=== PATIENT | female | born 1970 | race Caucasian/White ===

== ENCOUNTER 2018-12-09 14:43 | Emergency (ER) | payer MEDICAID, MEDICARE ==
[~2018-12-09] VITALS: Ht 162.6 cm; Wt 72.7 kg
[~2018-12-09 14:43] MED LIST: DIVA-81 PO; ZIPR40CA2 PO
[2018-12-09 17:09] LABS: CLARITY,URINE SLIGHTLY CLOUDY (Clear); COLOR,URINE YELLOW (Yellow); GLUCOSE, URINE NEGATIVE (Neg); KETONES,URINE NEGATIVE (Neg); LEUKOCYTE ESTERASE ,URINE NEGATIVE (Neg); NITRITES, URINE NEGATIVE (Neg); OCCULT BLOOD,URINE SMALL (Neg); PH,URINE 5.5 (4.8-8.0); PROTEIN,URINE NEGATIVE (Neg); UROBILINOGEN,URINE 0.2 E.U/dL (0.2-1.0)
[2018-12-09 17:10] LABS: URINE HCG NEGATIVE (NEG)
[2018-12-09 17:11] LABS: UA COLLECTION TYPE CLN CATCH MIDSTREAM
[2018-12-09 17:34] LABS: SQUAMOUS EPITHELIAL CELL,UR MANY /LPF (FEW)
[2018-12-09 17:35] LABS: BACTERIA,URINE 1+ /HPF (Neg); WBC,URINE 0-4 /HPF (0-4)
[2018-12-09 17:36] LABS: RBC,URINE 0-2 /HPF (0-2)
[2018-12-09 17:43] LABS: BASOPHILS # (AUTO) 0.1 X10'3 (0-0.2); BASOPHILS % (AUTO) 1.2 % (0-1); EOSINOPHILS # (AUTO) 0.1 X10'3 (0-0.9); HEMATOCRIT 39.3 % (35.0-45.0); HEMOGLOBIN 13.3 g/dl (12.0-16.0); LYMPHOCYTES # (AUTO) 1.9 X10'3 (1.1-4.8); LYMPHOCYTES % (AUTO) 28.8 % (21-51); MEAN CORPUSCULAR HEMOGLOBIN 32.5 PG (27.0-31.0); MEAN CORPUSCULAR HGB CONC 33.7 g/dL (33.0-36.5); MEAN CORPUSCULAR VOLUME 96.4 FL (78-98); MEAN PLATELET VOLUME 7.6 FL (7.4-10.4); MONOCYTES # (AUTO) 0.7 X10'3 (0-0.9); MONOCYTES % (AUTO) 10.5 % (2-12); NEUTROPHILS # (AUTO) 3.9 X10'3 (1.8-7.7); NEUTROPHILS % (AUTO) 57.5 % (42-75); PLATELET COUNT 277 X10'3 (140-440); RED BLOOD COUNT 4.07 X10'6 (4.20-5.60); RED CELL DISTRIBUTION WIDTH 14.4 % (11.5-14.5); WHITE BLOOD COUNT 6.7 X10'3 (4.5-11.0)
[2018-12-09 17:50] VITALS: BP 94/66
[2018-12-09 17:56] LABS: ALANINE AMINOTRANSFERASE 36 U/L (12-78); ALBUMIN 3.3 G/DL (3.4-5.0); ALKALINE PHOSPHATASE 48 IU/L (46-116); ANION GAP 8 (8-16); ASPARTATE AMINO TRANSFERASE 11 U/L (10-37); BILIRUBIN,TOTAL 0.3 MG/DL (0.1-1.0); BLOOD UREA NITROGEN 10 MG/DL (7-18); BUN/CREATININE RATIO 12.5 (6.6-38.0); CALCIUM 8.6 MG/DL (8.5-10.1); CHLORIDE 107 MMOL/L (99-107); GLUCOSE 114 MG/DL (70-104); LIPASE 86 U/L (73-393); SODIUM 142 MMOL/L (135-145); TOTAL CARBON DIOXIDE 27.3 MMOL/L (24-32); TOTAL PROTEIN 6.6 G/DL (6.4-8.2); eGFR 77 ML/MIN
[2018-12-09] MEDS ORDERED: potassium Cl 20 mEq SR tablet PO STA (18:12)
[2018-12-09] MEDS ORDERED: ONDA8TAB6 PO (18:15)
[2018-12-09] MEDS ORDERED: ondansetron 4mg rapidly disintigrating tab PO ONE (18:15)
[2018-12-09] MEDS ORDERED: POTA20TA19 PO (18:15)
[2018-12-09] MEDS ORDERED: acetaminophen 325mg tablet PO ONE (18:15)
== END 2018-12-09 18:30 | disposition home or self-care (01) ==
LOC: ER 14:43
DX: R10.30 Lower abdominal pain, unspecified (principal); I10 Essential (primary) hypertension; G89.29 Other chronic pain; F41.9 Anxiety disorder, unspecified; F20.9 Schizophrenia, unspecified; Z98.51 Tubal ligation status; Z98.890 Other specified postprocedural states; Z56.0 Unemployment, unspecified; Z88.5 Allergy status to narcotic agent; Z88.8 Allergy status to other drugs, medicaments and biological substances; Z79.899 Other long term (current) drug therapy
CPT/HCPCS: 36415; 80053; 81001; 81025; 83690; 85025; 99284

== ENCOUNTER 2020-03-04 10:42 | Emergency (ER) | payer MEDICARE ==
[~2020-03-04] VITALS: Ht 167.6 cm; Wt 70.0 kg
[~2020-03-04 10:42] MED LIST changes: +ONDA8TAB6 PO
--- NOTE | 2020-03-04 10:53 | NUR ---
didier [phone] son
[2020-03-04 11:18] LABS: BASOPHILS # (AUTO) 0.1 X10'3 (0-0.2); BASOPHILS % (AUTO) 0.9 % (0-1); EOSINOPHILS # (AUTO) 0.1 X10'3 (0-0.9); EOSINOPHILS % (AUTO) 1.5 % (0-6); HEMATOCRIT 44.4 % (35.0-45.0); HEMOGLOBIN 15.1 g/dl (12.0-16.0); LYMPHOCYTES # (AUTO) 2.3 X10'3 (1.1-4.8); LYMPHOCYTES % (AUTO) 31.6 % (21-51); MEAN CORPUSCULAR HEMOGLOBIN 32.9 PG (27.0-31.0); MEAN CORPUSCULAR HGB CONC 33.9 g/dL (33.0-36.5); MEAN CORPUSCULAR VOLUME 96.9 FL (78-98); MEAN PLATELET VOLUME 7.7 FL (7.4-10.4); MONOCYTES % (AUTO) 12.9 % (2-12); NEUTROPHILS # (AUTO) 3.9 X10'3 (1.8-7.7); NEUTROPHILS % (AUTO) 53.1 % (42-75); PLATELET COUNT 297 X10'3 (140-440); RED BLOOD COUNT 4.58 X10'6 (4.20-5.60); RED CELL DISTRIBUTION WIDTH 13.9 % (11.5-14.5); WHITE BLOOD COUNT 7.4 X10'3 (4.5-11.0)
[2020-03-04] MEDS ORDERED: LORazepam 1 MG tablet PO ONE (11:35)
[2020-03-04 11:37] LABS: ALANINE AMINOTRANSFERASE 43 U/L (12-78); ALBUMIN 3.8 G/DL (3.4-5.0); ALKALINE PHOSPHATASE 55 IU/L (46-116); ANION GAP 13 (8-16); ASPARTATE AMINO TRANSFERASE 34 U/L (10-37); BILIRUBIN,TOTAL 0.6 MG/DL (0.1-1.0); BLOOD UREA NITROGEN 9 MG/DL (7-18); BUN/CREATININE RATIO 13.4 (6.6-38.0); CHLORIDE 103 MMOL/L (99-107); CREATININE 0.67 MG/DL (0.40-0.90); GLUCOSE 92 MG/DL (70-104); POTASSIUM 3.2 MMOL/L (3.5-5.1); SODIUM 142 MMOL/L (135-145); TOTAL PROTEIN 7.6 G/DL (6.4-8.2); eGFR > 90 ML/MIN
[2020-03-04] MEDS ORDERED: potassium Cl 20 mEq SR tablet PO ONE (12:20)
--- NOTE | 2020-03-04 12:26 | NUR ---
Assumed care from REN Hilton. Pt still wearing her street clothes. Explained to patient that she has been placed on a 1799 and would need to change into green scrubs. Pt refused to change. ER Techs and security at bedside to help assist patient into green scrubs.
[2020-03-04 12:50] LABS: ETHANOL < 0.010 GM/DL (0.0-0.010)
--- NOTE | 2020-03-04 13:12 | NUR ---
Pt resting on gurney. Warm blanket given.
--- NOTE | 2020-03-04 13:13 | NUR ---
Pt refuses to give UA sample.
--- NOTE | 2020-03-04 14:31 | NUR ---
Pt sitting up and eating her lunch.
--- NOTE | 2020-03-04 15:10 | NUR ---
Patient disorganized and appears psychotic. Patient unable to figure out how to dial the phone. Patient unable to take directions on giving a urine sample. Patient was given the cup and the cup was thrown out. Tech gave patient water to drink. Continue to monitor.
[2020-03-04] MEDS: nicotine 14mg patch - 24hr TD SCH (16:55)
[2020-03-04] MEDS ORDERED: LISI40TA4 PO (17:10)
[2020-03-04] MEDS ORDERED: HCTZ25T PO (17:10)
--- NOTE | 2020-03-04 17:50 | NUR ---
Patient had another fail in giving a urine sample. Tech placed a hat and patient urinated in the hat. Specimen sent. Continue to monitor.
[2020-03-04 18:09] LABS: URINE HCG NEGATIVE (NEG)
[2020-03-04 18:10] LABS: CLARITY,URINE SLIGHTLY CLOUDY (Clear); COLOR,URINE YELLOW (Yellow); GLUCOSE, URINE NEGATIVE (Neg); KETONES,URINE TRACE mg/dl (Neg); LEUKOCYTE ESTERASE ,URINE NEGATIVE (Neg); NITRITES, URINE NEGATIVE (Neg); OCCULT BLOOD,URINE SMALL (Neg); PROTEIN,URINE NEGATIVE (Neg); UROBILINOGEN,URINE >=8.0 E.U/dL (0.2-1.0)
[2020-03-04 18:15] LABS: URINE AMPHETAMINE SCREEN NEGATIVE (Neg); URINE BARBITUATE SCREEN NEGATIVE (Neg); URINE BENZODIAZEPINES SCREEN NEGATIVE (Neg); URINE CANNABINOID SCREEN NEGATIVE (Neg); URINE COCAINE SCREEN NEGATIVE (Neg); URINE METHADONE SCREEN NEGATIVE (Neg); URINE OPIATE SCREEN NEGATIVE (Neg); URINE PHENCYCLIDINE SCREEN NEGATIVE (Neg)
[2020-03-04 18:17] LABS: UA COLLECTION TYPE CLN CATCH MIDSTREAM
[2020-03-04 18:19] LABS: BACTERIA,URINE FEW /HPF (Neg); MUCUS STRANDS MODERATE /LPF (Neg); RBC,URINE 0-2 /HPF (0-2); SQUAMOUS EPITHELIAL CELL,UR MANY /LPF (FEW); TRANSITIONAL EPI CELLS,URINE MODERATE /HPF; WBC,URINE 0-4 /HPF (0-4)
[2020-03-04 18:20] LABS: CAL OXALATE CRYSTALS 1+ /HPF (NEGATIVE)
[2020-03-04] MEDS: ziprasidone 20mg capsule PO SCH (20:38)
--- NOTE | 2020-03-04 21:04 | NUR ---
Pt has been lying in bed dozing at times alternating with ambulating on unit. Pt is agitated at times thought process very disorganized. Interviewed by [facility]. Took YOLANDA castle without problem. Pt becoming more agitated declined any PRN medications. Claims someone gave her a medication she is allergic to. Sitting on bed brushing hair at this time. Encouraged to ask staff if she changes her mind and wants anything to help her sleep.
--- NOTE | 2020-03-04 22:45 | NUR ---
Pt was able to calm self and go to sleep without further intervention. Sleeping at this time resp even and unlabored.
[2020-03-05] MEDS ORDERED: LORazepam 1 MG tablet PO ONE (01:00)
--- NOTE | 2020-03-05 01:53 | NUR ---
Pt became agitated. Desribed seeing something on the wall that was frightening her. Pt agreed to take Ativan. Order obtained Ativan given. Pt made 2 attempts to leave unit by back door. Redirected by Tech. Pt is in bed sleeping at this time.
--- NOTE | 2020-03-05 03:57 | NUR ---
Pt sleeping at this time. Had another episode of going to door as if to leave. Pt able to be redirected but became agitated yelled at staff then yelled toward floor "get up off the floor."
--- NOTE | 2020-03-05 05:45 | NUR ---
Pt made another attempt to leave floor. Redirected back to bed.
--- NOTE | 2020-03-05 06:44 | NUR ---
[facility]150 placed at 2053. Packet was sent per Vitaliy. Pat ient laying on right side. No distress observed. Continue to monitor.
--- NOTE | 2020-03-05 07:04 | NUR ---
Patient laying supine with eyes closed. No distress observed at this time.
--- NOTE | 2020-03-05 07:05 | NUR ---
Jocelynn pastor in ED - 03/05/20 at 0706 by MAGO Patient sleeping on left side. No distress observed at this time.
[2020-03-05] MEDS: ziprasidone 20mg capsule PO SCH ×2 (08:44→20:29)
[2020-03-05] MEDS: nicotine 14mg patch - 24hr TD SCH (08:45)
[2020-03-05] MEDS: lisinopril 20mg tablet PO SCH (08:45)
[2020-03-05] MEDS: HYDROchlorothiazide 25mg tablet PO SCH (08:53)
--- NOTE | 2020-03-05 09:10 | NUR ---
Patient awake and sitting up in bed. No distress observed. Continue to monitor.
--- NOTE | 2020-03-05 11:05 | NUR ---
Patient appears to be sleeping. No distress observed. Continue to monitor.
--- NOTE | 2020-03-05 13:15 | NUR ---
SPOKE TO [facility]. PRIMARY RN WILL CALL BACK WITH RN TO RN REPORT. NEGATIVE COVID NEEDED IN ORDER TO BE ACCEPTED TO [facility]. SPOKE WITH DR OGDEN, ORDER RECEIVED
--- NOTE | 2020-03-05 15:22 | NUR ---
Faxed Negative Covid test results to [facility].
--- NOTE | 2020-03-05 16:34 | NUR ---
Shakeel [phone]. Son wants to be notified when patient is transferred. Son want to move mom to [place], [place] where he lives. He wants to know when patient will be back so he can take her with him.
--- NOTE | 2020-03-05 17:45 | NUR ---
Accepted at [facility]. Will probably go tomorrow morning. Patient advised. Continue to monitor.
--- NOTE | 2020-03-05 19:00 | NUR ---
Patient is awake, mid fowlers in bed. She is cooperative and alert, some disorganized thought. The patient tells this greeting card writer that she is off her medications. Patient denies S/I, H/I, she denies hallucinations.
--- NOTE | 2020-03-06 01:35 | NUR ---
Patient up to bathroom to void. Her gait is normal. Patient returns to bed and sleep without problem.
--- NOTE | 2020-03-06 02:21 | NUR ---
Patient is sleeping quietly, low fowlers position in bed. In direct view from nurses station.
--- NOTE | 2020-03-06 03:46 | NUR ---
Patient is sitting up in bed, she is fixing her hair. Patient tells this newspaper writer she is having no problems.
[2020-03-06] MEDS ORDERED: NICOTINE POLACRILEX 4 MG LOZENGE BC ONE (04:40)
[2020-03-06] MEDS ORDERED: LORazepam 1 MG tablet PO ONE (04:40)
[2020-03-06] MEDS ORDERED: NICOTINE POLACRILEX 2 MG LOZENGE BC ONE (04:55)
--- NOTE | 2020-03-06 05:04 | NUR ---
Patient was sitting up, unable to sleep. Disorganized thought. Anxiety present. PO Ativan 1 mg given.
[2020-03-06 05:42] VITALS: BP_DIAS 73
--- NOTE | 2020-03-06 05:56 | NUR ---
Patient only tool one nicotine lozenge (2mg.) The second lozenge was returned.
[2020-03-06] MEDS: ziprasidone 20mg capsule PO SCH (07:30)
[2020-03-06] MEDS: HYDROchlorothiazide 25mg tablet PO SCH (07:30)
[2020-03-06 07:31] VITALS: BP_SYST 110
[2020-03-06] MEDS: lisinopril 20mg tablet PO SCH (07:31)
[2020-03-06] MEDS: nicotine 14mg patch - 24hr TD SCH (07:33)
--- NOTE | 2020-03-06 07:41 | NUR ---
[facility] OFFICE CALLED, PT HAS BEEN ACCEPTED TO [facility] AND PRINTER ASSISTANT WILL BE PICKING HER UP BETWEEN -[phone] THIS MORNING
--- NOTE | 2020-03-06 08:17 | NUR ---
MINE EXPERT ARRIVES TO TAKE PT TO [facility]. PT EATING BREAKFAST. PT GIVEN HER CLOTHES.
--- NOTE | 2020-03-06 08:35 | NUR ---
SECURITY CALLED FOR WALK OUT FOR TRANSFER TO FACILITY.
--- NOTE | 2020-03-06 08:45 | NUR ---
PT'S SON IS CONTACTED TO NOTIFY HIM THAT HIS MOTHER WAS TRANSFERRED TO [facility] IN [place]. SHE WILL ARRIVE THERE APPROX AT 1215 TODAY. HE CAN CALL THERE AT THAT TIME.
== END 2020-03-06 08:48 ==
LOC: ER 10:43
DX: F23 Brief psychotic disorder (principal); Z20.828 Contact with and (suspected) exposure to other viral communicable diseases; I10 Essential (primary) hypertension; G89.29 Other chronic pain; F41.9 Anxiety disorder, unspecified; Z85.41 Personal history of malignant neoplasm of cervix uteri; Z98.891 History of uterine scar from previous surgery; Z98.51 Tubal ligation status; Z56.0 Unemployment, unspecified; Z88.8 Allergy status to other drugs, medicaments and biological substances; Z79.899 Other long term (current) drug therapy
CPT/HCPCS: 36415; 80053; 80305; 80320; 81001; 81025; 84443; 85025; 87635; 99285; C9803

== ENCOUNTER 2021-08-13 11:39 | Inpatient (IN) | payer MEDICARE, MEDICAID ==
[~2021-08-13] VITALS: Ht 162.6 cm; Wt 59.1 kg
[~2021-08-13 11:39] MED LIST changes: -DIVA-81 PO; +HYDR25TA5 PO; +LISI40TA13 PO; -ONDA8TAB6 PO; -ZIPR40CA2 PO
[2021-08-13 12:59] LABS: BASOPHILS # (AUTO) 0.1 X10'3 (0-0.2); BASOPHILS % (AUTO) 0.7 % (0-1); EOSINOPHILS # (AUTO) 0.1 X10'3 (0-0.9); EOSINOPHILS % (AUTO) 0.6 % (0-6); HEMATOCRIT 44.4 % (35.0-45.0); HEMOGLOBIN 15.1 g/dl (12.0-16.0); LYMPHOCYTES # (AUTO) 2.1 X10'3 (1.1-4.8); LYMPHOCYTES % (AUTO) 25.1 % (21-51); MEAN CORPUSCULAR HEMOGLOBIN 31.5 PG (27.0-31.0); MEAN CORPUSCULAR HGB CONC 33.9 g/dL (33.0-36.5); MEAN CORPUSCULAR VOLUME 92.9 FL (78-98); MEAN PLATELET VOLUME 7.1 FL (7.4-10.4); MONOCYTES # (AUTO) 1.1 X10'3 (0-0.9); MONOCYTES % (AUTO) 13.5 % (2-12); NEUTROPHILS % (AUTO) 60.1 % (42-75); PLATELET COUNT 250 X10'3 (140-440); RED BLOOD COUNT 4.78 X10'6 (4.20-5.60); RED CELL DISTRIBUTION WIDTH 14.3 % (11.5-14.5); WHITE BLOOD COUNT 8.3 X10'3 (4.5-11.0)
[2021-08-13 13:22] LABS: ALANINE AMINOTRANSFERASE 21 U/L (12-78); ALBUMIN 3.7 G/DL (3.4-5.0); ALKALINE PHOSPHATASE 84 IU/L (46-116); ANION GAP 12 (8-16); ASPARTATE AMINO TRANSFERASE 22 U/L (10-37); BILIRUBIN,TOTAL 0.8 MG/DL (0.1-1.0); BLOOD UREA NITROGEN 9 MG/DL (7-18); BUN/CREATININE RATIO 13.8 (6.6-38.0); CALCIUM 8.5 MG/DL (8.5-10.1); CHLORIDE 105 MMOL/L (99-107); CREATININE 0.65 MG/DL (0.40-0.90); ETHANOL < 0.010 GM/DL (0.0-0.010); GLUCOSE 97 MG/DL (70-104); SODIUM 142 MMOL/L (135-145); TOTAL CARBON DIOXIDE 24.7 MMOL/L (24-32); TOTAL PROTEIN 7.3 G/DL (6.4-8.2); eGFR > 90 ML/MIN
[2021-08-13] MEDS ORDERED: potassium Cl 20 mEq SR tablet PO ONE (13:40)
--- NOTE | 2021-08-13 13:45 | NUR ---
PT AMBULATED WITH STEADY GAIT TO ER BED 9. ATTEMPTED TO GIVE URINE SAMPLE, BUT SAID SHE "WENT POOP FIRST LIKE A LADY BEFORE SHE PEED"
[2021-08-13] MEDS ORDERED: olanzapine 10mg tablet PO STA (13:58)
--- NOTE | 2021-08-13 14:00 | NUR ---
SUMMER BENITEZ AT BEDSIDE SPEAKING WITH PT AND SON.
[2021-08-13 15:33] LABS: URINE HCG NEGATIVE (NEG)
--- NOTE | 2021-08-13 15:33 | NUR ---
telephone report to claire barrios
[2021-08-13 15:39] LABS: URINE AMPHETAMINE SCREEN NEGATIVE (Neg); URINE BARBITUATE SCREEN NEGATIVE (Neg); URINE BENZODIAZEPINES SCREEN NEGATIVE (Neg); URINE CANNABINOID SCREEN NEGATIVE (Neg); URINE COCAINE SCREEN NEGATIVE (Neg); URINE METHADONE SCREEN NEGATIVE (Neg); URINE OPIATE SCREEN NEGATIVE (Neg); URINE PHENCYCLIDINE SCREEN NEGATIVE (Neg)
[2021-08-13 15:40] LABS: CLARITY,URINE CLEAR (Clear); COLOR,URINE STRAW (Yellow); GLUCOSE, URINE NEGATIVE (Neg); KETONES,URINE 15 mg/dl (Neg); LEUKOCYTE ESTERASE ,URINE NEGATIVE (Neg); NITRITES, URINE NEGATIVE (Neg); OCCULT BLOOD,URINE LARGE (Neg); PROTEIN,URINE NEGATIVE (Neg); UA COLLECTION TYPE CLN CATCH MIDSTREAM; UROBILINOGEN,URINE 0.2 E.U/dL (0.2-1.0)
[2021-08-13 16:11] LABS: SQUAMOUS EPITHELIAL CELL,UR MANY /LPF (FEW)
[2021-08-13] MEDS ORDERED: LOSA25TA96 PO (16:14)
[2021-08-13 16:15] LABS: BACTERIA,URINE 1+ /HPF (Neg)
[2021-08-13 16:16] LABS: RBC,URINE 0-2 /HPF (0-2); WBC,URINE 0-4 /HPF (0-4)
--- NOTE | 2021-08-13 19:11 | NUR ---
One to one with the patient who presented with some confusion of being on the 5150 hold but was reminded that she was on a hold and that she would not be able to leave until the hold was lifted. She did accept that and is currently sleeping on her bed. When asked why she was in the ER she stated "I just snapped" She denies psychotic symptoms. SI and HI are denied. She reports she has not been sleeping well at home. When asked about why she thought she needed rehab for a paint thinner addiction she stated that she was painting a table at home and it smelled so good she could not stop painting with it. She asked to use the phone but had to have help with the phone call.
--- NOTE | 2021-08-13 20:13 | NUR ---
The patient appears to be sleeping
--- NOTE | 2021-08-13 21:44 | NUR ---
The patient is irritable and wanting to go home. She also complains of leg pain which she describes as chronic. Dr. Aquino made aware and orders received
[2021-08-13] MEDS ORDERED: LORazepam 1 MG tablet PO ONE (21:45)
[2021-08-13] MEDS ORDERED: ibuprofen tablet 400 MG TABLET PO ONE (21:45)
--- NOTE | 2021-08-13 23:16 | NUR ---
The patient awakened by screaming peer. She is pleasant. Asked for water and juice which were provided.
--- NOTE | 2021-08-14 00:06 | NUR ---
The patient was up to use the bathroom but had difficulty finding her own bed and had gotten in another patient's bed but accepted redirection.
--- NOTE | 2021-08-14 02:06 | NUR ---
The patient is awake and resting on her bed
--- NOTE | 2021-08-14 04:13 | NUR ---
The patient appears to be sleeping
--- NOTE | 2021-08-14 05:07 | NUR ---
The patient is disorganized. She is asking for zyprexa. She stated that she has been on it in the past. Spoke with Dr. Erwin and orders received.
[2021-08-14] MEDS: OLANZapine 2.5MG tablet PO SCH ×2 (05:13→21:05)
[2021-08-14] MEDS: losartan 50mg tablet PO SCH (08:24)
--- NOTE | 2021-08-14 10:12 | NUR ---
PATIENT APPEARS TO BE SLEEPING ON BACK.
--- NOTE | 2021-08-14 11:44 | NUR ---
PATIENT AWAKE RESTING IN BED WATCHING TELEVISION.
--- NOTE | 2021-08-14 12:01 | NUR ---
PT UP OUT OF BED TO THE RESTROOM.
--- NOTE | 2021-08-14 12:12 | NUR ---
PT SITTING UP IN BED EATING LUNCH.
--- NOTE | 2021-08-14 13:23 | NUR ---
PT SITTING UP IN BED WATCHING T.V.
--- NOTE | 2021-08-14 15:05 | NUR ---
PT LAYING SUPINE WITH HEAD OF BED ELEVATED, RESPIRATIONS EVEN AND UNLABORED. EYES CLOSED. NO ACUTE DISTRESS.
--- NOTE | 2021-08-14 16:10 | NUR ---
PT SITTING UP IN BED WATCHING TELEVISION. WATER PITCHER REFILLED.
[2021-08-14] MEDS ORDERED: mag hydrox/Alum hydrox/simeth 30ml oral suspension PO PRN (16:45)
[2021-08-14] MEDS ORDERED: loperamide 2mg capsule PO PRN (16:45)
[2021-08-14] MEDS ORDERED: magnesium hydroxide 30ml (MOM) UD suspension PO PRN (16:45)
--- NOTE | 2021-08-14 16:56 | NUR ---
Admit note: Pt admitted [facility] to [facility] on 5150 for Gravely disabled from our ER at 1625. Pt exhibits confusion, disorganized thought fear, mood instability and unable to sleep for several days, has not benefitted from family support for food, clothing and fdc. Pt has history of Schizoaffective, HTN, chronic pain, anxiety.
[2021-08-14 19:00] VITALS: BP 128/85
[2021-08-14] MEDS ORDERED: traZODone 50mg tablet PO PRN (23:35)
--- NOTE | 2021-08-15 04:13 | NUR ---
RN PROGRESS NOTE: LEGAL HOLD: 5150 for GD THIS SHIFT: Client was cooperative and pleasant. Complained of "muscle stiffness" and attributed it to "moving rocks around my property". 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 We were clearing rocks." Ibuprofen was offered and declined by patient. Client took night med. Blunted affect. Client has difficulty staying asleep. Trazodone was ordered. Client was asleep when this RN attempted to admin Trazodone. She later woke-up and asked for a Nicotine Lozenge.
[2021-08-15] MEDS: NICOTINE POLACRILEX 2 MG LOZENGE BC PRN ×8 (05:26→21:27)
[2021-08-15 07:22] LABS: HEMOGLOBIN A1C 5.4 % (4.5-6.2)
[2021-08-15] MEDS: losartan 50mg tablet PO SCH (07:42)
[2021-08-15] MEDS: OLANZapine 2.5MG tablet PO SCH ×2 (07:42→20:41)
[2021-08-15 07:50] LABS: CHOL/HDL RATIO 2.5 (0.00-4.99); CHOLESTEROL 153 MG/DL (0-200); HDL CHOLESTEROL 61 MG/DL (35-60); LDL CHOLESTEROL 73 MG/DL (50-100); TRIGLYCERIDES 46 MG/DL (20-135)
[2021-08-15 08:00] VITALS: BP 120/87
[2021-08-15] MEDS: acetaminophen 325mg tablet PO PRN (09:11)
[2021-08-15 11:39] LABS: POTASSIUM 4.1 MMOL/L (3.5-5.1)
--- NOTE | 2021-08-15 16:34 | NUR ---
Nursing Progress Note: Marsha Legal hold: 5150 Client on involuntary for GD Report received from Anabel Mercado RN with use of SBAR. Why they are here: 5150 states: Marsha exhibits confusion, disorganized thoughts, fear, mood instability, and unable to sleep for several days, has not benefitted from family support for food, clothing , and detention. Assessment What has happened this shift: Pt. received sleeping, woke to receive her medication and was compliant. 1:1 assessment completed, and she denies SI, HI, she reports she was admitted d/t an argument with my daughter in law. Pt. reports her discharge plan is to go home to [place] Pt. presents blunted at times and down casted. Pt. ate her meals in the dining room with cohorts, she has not been observed interacting socially. Pt. approached policy writer typist several times this shift requesting nicotine lozenges. Pt. took two long naps this shift possible r/t poor sleep hours last night. She also reported sore muscles and arms PRN Tylenol given; effective. S/I, H/I: Denies A/VH: Denies Sleep: 3.5 hrs per NOC, 2 hr nap today ADL's: Independent Group attendance: Not available Were meds taken: Yes Any med S/E: None observed or reported. Mental Status Exam Appearance: Older female, long black with hua hair, street clothes. Eye contact: Good Behavior: Pleasant Speech: Clear Mood: Depressed Affect: Blunted Thought process: Linear Thought Content: Going home Cognition: A&O x4 Insight: Fair Judgment: Fair Interventions PRN's used: Tylenol, Nicotine lozenges Therapeutic interventions: Attempts made to provide 1:1 assessment, therapeutic communication, encouraged pt to express her thoughts and feelings, active listening, medication administration/education/monitoring, provided distraction, direction, positive reinforcement, and Q15 minute safety checks. Restraints/seclusion/emergency medication: None Justification of Continued Inpatient Treatment: Pt is still in need of medication adjustments and monitoring in a safe and therapeutic environment until stable.
[2021-08-15 19:30] VITALS: BP 123/92
--- NOTE | 2021-08-16 04:24 | NUR ---
Nursing Progress Note: Marsha Legal hold: 5150 Client on involuntary for GD Report received from REN De Jesus with use of SBAR. Why they are here: 5150 states: Marsha exhibits confusion, disorganized thoughts, fear, mood instability, and unable to sleep for several days, has not benefitted from family support for food, clothing , and fci. Assessment What has happened this shift: Patient was observed sitting in community room watching tv and talking to other patients. Patient got up multiple times to ask for nicotine lozenge and to pace around unit before returning to community room. Patient was polite and cooperative. Patient took medication without issue but was worried about the side effects of trazodone. Patient paced a little longer before going to bed.
[2021-08-16] MEDS: NICOTINE POLACRILEX 2 MG LOZENGE BC PRN ×5 (06:09→20:36)
[2021-08-16 07:00] VITALS: BP 143/108
[2021-08-16] MEDS: losartan 50mg tablet PO SCH (07:22)
[2021-08-16] MEDS: acetaminophen 325mg tablet PO PRN ×2 (07:23→15:10)
[2021-08-16 09:00] VITALS: BP 149/113
[2021-08-16] MEDS ORDERED: losartan 50mg tablet PO SCH (14:30)
--- NOTE | 2021-08-16 15:41 | NUR ---
Nursing Progress Note: Marsha Legal hold: 5150 Client on involuntary for GD Report received from Anabel Mercado RN with use of SBAR. Why they are here: 5150 states: Marsha exhibits confusion, disorganized thoughts, fear, mood instability, and unable to sleep for several days, has not benefitted from family support for food, clothing, and chcf. Assessment What has happened this shift: Pt. received awake and ambulating in the lund. Pt. blood pressure was elevated, and medications were administered. Later 1:1 assessment completed, she denies SI, HI, and she reports she was admitted d/t a misunderstanding with my daughter in law. Pt. reports her discharge plan is to go home to [place] Pt. reports she slept well and feels better today, and was cooperative for the most part. Pt. c/o back pain and was given PRN Tylenol; she reports effectiveness. Pt. ate her meals in the dining room with cohorts, she been observed socializing more with small groups. Pt. approached screen writer several times this shift requesting nicotine lozenges. At 1515 pt. approached screen writer with a loud voice saying extra strength Tylenol screen writer assessed pain and administered PRN dose, and pt. presented as irritable. Spoke to provider regarding blood pressure trends; N.O to change Cozaar 50mg Qday to 100mg Qday, and these changes were discussed with pt. S/I, H/I: Denies A/VH: Denies Sleep: 7.25 hrs per NOC, no naps ADL's: Independent Group attendance: Not available Were meds taken: Yes Any med S/E: None observed or reported. Mental Status Exam Appearance: Older female, long black with hua hair, street clothes. Eye contact: Good Behavior: Pleasant Speech: Clear Mood: Depressed Affect: Blunted Thought process: Linear Thought Content: Going home Cognition: A&O x4 Insight: Fair Judgment: Fair Interventions PRN's used: Tylenol, Nicotine lozenges Therapeutic interventions: Attempts made to provide 1:1 assessment, therapeutic communication, encouraged pt to express her thoughts and feelings, active listening, medication administration/education/monitoring, provided distraction, direction, positive reinforcement, and Q15 minute safety checks. Restraints/seclusion/emergency medication: None Justification of Continued Inpatient Treatment: Pt is still in need of medication adjustments and monitoring in a safe and therapeutic environment until stable.
[2021-08-16 20:00] VITALS: BP 170/110
[2021-08-16] MEDS ORDERED: cloNIDine 0.1 mg tablet PO ONE (20:30)
[2021-08-16] MEDS: OLANZapine 2.5MG tablet PO SCH (20:35)
[2021-08-17] MEDS: acetaminophen 325mg tablet PO PRN ×2 (03:09→16:17)
--- NOTE | 2021-08-17 04:35 | NUR ---
Nursing Progress Note: Marsha Legal hold: 5150 Client on involuntary for GD Report received from REN De Jesus with use of SBAR. Why they are here: 5150 states: Marsha exhibits confusion, disorganized thoughts, fear, mood instability, and unable to sleep for several days, has not benefitted from family support for food, clothing , and fci. Assessment What has happened this shift: Patient was observed sitting in community room watching tv and talking to other patients. Pt also spent a good amount of time pacing the unit with male peer. Pt presents as slightly confused and disorganized. Pt BP was elevated and Dr. Gusman contacted and pt given clonidine 0.1mg per MD order. Pt went to sleep around 0015 and woke again 0330 and was given tylenol for body aches that pt blamed on menopause.
--- NOTE | 2021-08-17 05:21 | NUR ---
Client was unable to fall asleep and stay asleep. She declined PRN Sleep meds (so MD was not contacted for order).
[2021-08-17] MEDS: NICOTINE POLACRILEX 2 MG LOZENGE BC PRN ×3 (07:00→16:17)
[2021-08-17] MEDS: losartan 50mg tablet PO SCH (07:02)
[2021-08-17 08:00] VITALS: BP 151/100
[2021-08-17 08:54] VITALS: BP 151/100
[2021-08-17 08:55] VITALS: BP 150/99
--- NOTE | 2021-08-17 16:11 | NUR ---
Report received from Anabel Mercado RN with use of SBAR. Why they are here: 4983 states: Marsha exhibits confusion, disorganized thoughts, fear, mood instability, and unable to sleep for several days, has not benefitted from family support for food, clothing, and group home. Assessment What has happened this shift: Pt. received awake and ambulating in the lund. Pt requests harinder pads "Menopause is not good". Pt given harinder pads but did already have several peripads. Pt making several attempts to speak with nurse through the sound proof glass. Pt. c/o back pain and was given PRN Tylenol; she reports effectiveness. Pt. ate her meals in the dining room with cohorts, she been observed socializing more with small groups coloring. Pt. approached ticket writer several times this shift requesting nicotine lozenges. S/I, H/I: Denies A/VH: Denies Sleep: at night ADL's: Independent Group attendance: Not available Were meds taken: Yes Any med S/E: None observed or reported. Mental Status Exam Appearance: Older female, long black with hua hair, street clothes. Eye contact: Good Behavior: Pleasant Speech: Clear Mood: Depressed Affect: Blunted Thought process: Linear Thought Content: Going home Cognition: A&O x4 Insight: Fair Judgment: Fair Interventions
[2021-08-17 20:05] VITALS: BP 152/118
[2021-08-17] MEDS ORDERED: cloNIDine 0.1 mg tablet PO ONE (20:35)
[2021-08-17] MEDS ORDERED: OLANZAPINE 5 MG TABLET PO SCH (21:00)
--- NOTE | 2021-08-18 02:17 | NUR ---
Nursing Progress Note: Marsha Legal hold: 5150 Client on involuntary for GD Report received from REN De Jesus with use of SBAR. Why they are here: 5150 states: Marsha exhibits confusion, disorganized thoughts, fear, mood instability, and unable to sleep for several days, has not benefitted from family support for food, clothing , and nursing home. Assessment What has happened this shift: Patient seen in the community room for 1:1. She was playing cards with one of her peers. She appears to be doing well, but gets a little disorganized after a few minutes. She denies all MH symptoms. "I live with my son, but he gets worried about me." She did not describe why. Patient paces the halls when not sitting in the group room. Patient has elevated blood pressure. She says she's had high blood pressure for a long time. SUMMER Woods still on unit and ordered 0.1mg Clonidine 1 time. She hopes the Doctors will take a look tomorrow and order something.
[2021-08-18] MEDS: NICOTINE POLACRILEX 2 MG LOZENGE BC PRN ×3 (05:03→13:43)
[2021-08-18] MEDS: acetaminophen 325mg tablet PO PRN (05:19)
--- NOTE | 2021-08-18 07:16 | NUR ---
Initial: Pt admitted w/ psychosis per EMR. Currently on Regular diet w/ mostly 100% intake of meals meeting needs at this time. [facility] 08/15 w/ PRN bowel care available. No nutrition intervention implemented at this time, will continue to monitor. Recs: 1. Continue Regular diet as tolerated 2. Bowel care PRN 3. Weekly wts Addendum: 08/18/21 at [address] Amended: Links added.
[2021-08-18 07:54] VITALS: BP 154/109
[2021-08-18 07:59] VITALS: BP_SYST 154
[2021-08-18] MEDS: losartan 50mg tablet PO SCH (07:59)
--- NOTE | 2021-08-18 13:46 | NUR ---
5250 RELEASED FOR GD
[2021-08-18] MEDS ORDERED: TRAZ-251 PO (15:17)
[2021-08-18] MEDS ORDERED: OLAN15TA20 PO (15:17)
[2021-08-18] MEDS ORDERED: NICO-907 BC (15:17)
--- NOTE | 2021-08-18 16:29 | NUR ---
Discharge note: Pt. reviewed discharge plan, signed, and copied. All personal property received and items were given from the safe as well. Follow up with [facility] advised information provided.Pt. ambulated off the unit @1605 and escorted to the door.
== END 2021-08-18 15:44 | disposition home or self-care (01) | DRG 885 ==
LOC: ER 11:40 → ED HOLD 08-14 12:00 → ADULT MH 08-14 16:28
PROVIDERS: ADMIT Psychiatry & Neurology Psychiatry; ATTEND Psychiatry & Neurology Psychiatry
DX: F20.9 Schizophrenia, unspecified (principal); F17.210 Nicotine dependence, cigarettes, uncomplicated; E87.6 Hypokalemia; F41.9 Anxiety disorder, unspecified; Z20.822 Contact with and (suspected) exposure to COVID-19; I10 Essential (primary) hypertension; F31.9 Bipolar disorder, unspecified; Z85.41 Personal history of malignant neoplasm of cervix uteri; Z98.891 History of uterine scar from previous surgery; Z98.51 Tubal ligation status; Z88.5 Allergy status to narcotic agent; Z88.6 Allergy status to analgesic agent; Z88.8 Allergy status to other drugs, medicaments and biological substances; Z79.899 Other long term (current) drug therapy; Z56.0 Unemployment, unspecified
CPT/HCPCS: 36415; 80053; 80061; 80305; 80320; 81001; 81025; 83036; 84132; 84443; 85025; 87081; 87635; 99285; C9803

== ENCOUNTER 2023-05-23 11:28 | Emergency (ER) | payer MEDICARE, MEDICAID ==
[~2023-05-23] VITALS: Ht 162.6 cm; Wt 65.9 kg
[~2023-05-23 11:28] MED LIST changes: -HYDR25TA5 PO; -LISI40TA13 PO; +NICO-907 BC; +OLAN15TA20 PO; +TRAZ-251 PO
[2023-05-23 12:31] LABS: BASOPHILS % (AUTO) 0.8 % (0-1); EOSINOPHILS # (AUTO) 0.1 X10'3 (0-0.9); EOSINOPHILS % (AUTO) 0.8 % (0-6); HEMATOCRIT 45.6 % (35.0-45.0); HEMOGLOBIN 15.3 g/dl (12.0-16.0); LYMPHOCYTES % (AUTO) 31.2 % (21-51); MEAN CORPUSCULAR HEMOGLOBIN 32.4 PG (27.0-31.0); MEAN CORPUSCULAR HGB CONC 33.5 g/dL (33.0-36.5); MEAN CORPUSCULAR VOLUME 96.7 FL (78-98); MEAN PLATELET VOLUME 8.1 FL (7.4-10.4); MONOCYTES # (AUTO) 0.7 X10'3 (0-0.9); MONOCYTES % (AUTO) 10.3 % (2-12); NEUTROPHILS # (AUTO) 3.6 X10'3 (1.8-7.7); NEUTROPHILS % (AUTO) 56.9 % (42-75); PLATELET COUNT 236 X10'3 (140-440); RED BLOOD COUNT 4.72 X10'6 (4.20-5.60); RED CELL DISTRIBUTION WIDTH 14.5 % (11.5-14.5); WHITE BLOOD COUNT 6.3 X10'3 (4.5-11.0)
[2023-05-23 12:41] LABS: ALBUMIN 3.6 G/DL (3.4-5.0); ANION GAP 13 (8-16); BLOOD UREA NITROGEN 10 MG/DL (7-18); BUN/CREATININE RATIO 12.8 (10.0-20.0); CALCIUM 7.8 MG/DL (8.5-10.1); CHLORIDE 105 MMOL/L (99-107); CREATININE 0.78 MG/DL (0.40-0.90); GLUCOSE 92 MG/DL (70-104); LIPASE 21 U/L (16-77); SODIUM 143 MMOL/L (135-145); TOTAL CARBON DIOXIDE 25.2 MMOL/L (24-32); eCRCL 73 ML/MIN; eGFR 78 ML/MIN
[2023-05-23 13:28] VITALS: BP 135/100; PULSE 78; TEMP 97.9; O2SAT 98
[2023-05-23 15:23] LABS: BILIRUBIN,URINE NEGATIVE (Neg); CLARITY,URINE CLOUDY (Clear); COLOR,URINE YELLOW (Yellow); GLUCOSE, URINE NEGATIVE (Neg); KETONES,URINE >=80 mg/dl (Neg); LEUKOCYTE ESTERASE ,URINE NEGATIVE (Neg); NITRITES, URINE NEGATIVE (Neg); OCCULT BLOOD,URINE NEGATIVE (Neg); PH,URINE 6.5 (4.8-8.0); PROTEIN,URINE NEGATIVE (Neg); UROBILINOGEN,URINE 0.2 E.U/dL (0.2-1.0)
[2023-05-23 15:25] LABS: URINE HCG NEGATIVE (NEG)
[2023-05-23] MEDS: cyclobenzaprine 10mg tablet PO ONE (15:25)
[2023-05-23] MEDS: ketorolac trometh inj. 60 MG/2 ML VIAL IM ONE (15:26)
[2023-05-23] MEDS: dexamethasone sod phosphate 10mg/ml inj IM STA (15:26)
[2023-05-23 15:34] VITALS: RESP 18
[2023-05-23 15:51] LABS: UA COLLECTION TYPE CLN CATCH MIDSTREAM
[2023-05-23 15:52] LABS: BACTERIA,URINE 2+ /HPF (Neg); MUCUS STRANDS FEW /LPF (Neg); RBC,URINE 0-2 /HPF (0-2); SQUAMOUS EPITHELIAL CELL,UR MANY /LPF (FEW); WBC,URINE 0-4 /HPF (0-4)
[2023-05-23] MEDS ORDERED: LIDO700A32 TOP (16:14)
[2023-05-23] MEDS ORDERED: CYCL-1 PO (16:14)
== END 2023-05-23 16:32 | disposition home or self-care (01) ==
LOC: ER 11:28
DX: K80.20 Calculus of gallbladder without cholecystitis without obstruction (principal)
CPT/HCPCS: 36415; 74176; 80048; 81001; 81025; 83690; 84484; 85025; 93005; 96372; 99285; J1100; J1885

== ENCOUNTER 2024-12-27 17:03 | Emergency (ER) | payer MEDICARE, MEDICAID ==
[~2024-12-27 17:03] MED LIST changes: +CYCL-1 PO; +LIDO-52 TOP
== END 2024-12-27 17:37 | disposition left against medical advice (07) ==
LOC: ER 17:03
DX: Z00.8 Encounter for other general examination (principal); Z88.8 Allergy status to other drugs, medicaments and biological substances; Z53.21 Procedure and treatment not carried out due to patient leaving prior to being seen by health care provider

== ENCOUNTER 2024-12-27 18:42 | Emergency (ER) | payer MEDICARE, MEDICAID ==
[~2024-12-27] VITALS: Ht 162.6 cm; Wt 70.0 kg
[2024-12-27 18:51] VITALS: BP 150/102; PULSE 110; RESP 18; TEMP 98; O2SAT 96
[2024-12-27] MEDS ORDERED: OLANZapine 5mg rapidly disint. tablet PO ONE (19:15)
[2024-12-27] MEDS: OLANZapine 5mg rapidly disint. tablet PO ONE (19:19)
--- NOTE | 2024-12-27 19:44 | Physician Documentation ---
HPI ~ General Chief Complaint: Medication Refill Stated Complaint: MED REQUEST Time Seen by MD: 19:25 Primary Medical Doctor: Autumn History of Present Illness HPI Comments Patient presents to the emergency department requesting Zyprexa dosing and prescription evaluation. Apparently today she has been in contact with several pharmacies regarding this prescribed Zyprexa dose which the pharmacies do not have. He approached by the nursing staff to provide patient's nighttime dose in the waiting department until she can be room. The order was granted. Patient now not in the lobby nor the surrounding grounds for completed evaluation. There was no direct patient contact. Medication Reconciliation Allergies: Coded Allergies: codeine (Verified Allergy, Unknown, 05/23/23) hydrocodone (Verified Allergy, Unknown, 05/23/23) lithium (Verified Allergy, Unknown, 05/23/23) Uncoded Allergies: "I'M ALLERGIC TO EVERYTHING" (Allergy, Unknown, 12/24/14) Scheduled Cyclobenzaprine* (Cyclobenzaprine*), 1 TAB PO HS Lidocaine (Lidoderm), 1 PATCH TOP DAILY Olanzapine (Olanzapine), 1 TAB PO HS Olanzapine (Olanzapine), 1 TAB PO HS Olanzapine (Olanzapine), 1 TAB PO HS Scheduled PRN Nicotine Polacrilex (Nicotine Lozenge), 2 MG BC Q2H PRN for nicotine craving Trazodone HCl (Trazodone HCl), 50 MG PO HSMR1 PRN for sleep Past Medical History Past Medical History: Hypertension, Chronic Pain, Cervical Cancer/Dysplasia, Anxiety, Schizophrenia Past Surgical History: , tubal ligation, other Alcohol Use: None Drug Use: none Lives In: Home Occupation: unemployed, disabled Physical Exam Physical Exam Vital Signs: Temperature: 98.0, Source: Temporal, Heart Rate: 110, Respiratory Rate: 18, BP: 150/102, Pulse Oximetry: 96, Weight: 70.000 Progress Results/Orders Results/Orders Completed Orders - JOHANNA SEYMOUR Olanzapine Disint. Tablet (Zyprexa Zydis (12/27/24 19:15) Olanzapine Disint. Tablet (Zyprexa Zydis (12/27/24 19:15) Vital Signs 12/27/24 18:51 Temp 98.0 Pulse 110 Resp 18 B/P (MAP) 150/102 Pulse Ox 96 Departure Disposition: LEFT WITHOUT BEING SEEN Impression: Primary Impression: Medication administered Referrals: NO PRIMARY CARE PROVIDER (PCP) Signature Scribe Signature: . Attestation: . JOHANNA SEYMOUR PAC Dec 27, 2024 19:44
== END 2024-12-27 19:53 | disposition left against medical advice (07) ==
LOC: ER 18:43
DX: Z00.8 Encounter for other general examination (principal); Z76.0 Encounter for issue of repeat prescription; F20.9 Schizophrenia, unspecified; I10 Essential (primary) hypertension; F41.9 Anxiety disorder, unspecified; Z88.5 Allergy status to narcotic agent; Z98.51 Tubal ligation status
CPT/HCPCS: 99283